=== PATIENT | female | born 1965 | race African-American/Black ===

== ENCOUNTER 2018-10-27 15:28 | Inpatient (IN) | payer SELFPAY ==
[2018-10-27] MEDS ORDERED: IPRATROPIUM/ALBUTEROL 0.5-2.5 MG/3 ML AMPUL NEB ONE (15:36)
[2018-10-27] MEDS ORDERED: METHYLPREDNISOLONE INJ 125 MG/2 ML SDV IV ONE (15:36)
[2018-10-27] MEDS ORDERED: NORMAL SALINE 1000 ML 1,000 ML IV ONE (15:38)
--- NOTE | 2018-10-27 15:41 | ER Document Report ---
ED Respiratory Problem - General Chief Complaint: Shortness Of Breath Stated Complaint: SHORTNESS OF BREATH Time Seen by Provider: 10/27/18 15:36 Mode of Arrival: Ambulatory Information source: Patient Notes: Chief complaint: Shortness of breath History of complain: 52 years old female presents today with sudden onset of shortness of breath when woke up from sleep. Since then progressively increased to therefore called EMS and came to the ED. EMS crew found her to have elevated blood pressures systole over 200, and a blood sugar of over 300. She has no known diagnosis of hypertension or diabetes. Denies any chest pain denies any left arm numbness tingling sensation nausea vomiting palpitation or diaphoresis. Denies any recent travel or sitting in place long time. No history of any DVT or PE. Onset: Just prior to arrival sudden Duration: Just prior to arrival Severity: Moderate Quality: Wheezing Context: Smoking Exacerbating factor and relieving factors: Exertion REVIEW OF SYSTEMS: CONSTITUTIONAL : Denies fever, chills, or sweats. Denies recent illness. EENT: Denies eye, ear, throat, or mouth pain or symptoms. Denies nasal or sinus congestion or discharge. Denies throat, tongue, or mouth swelling or difficulty swallowing. CARDIOVASCULAR: Denies chest pain. Denies palpitations or racing or irregular heart beat. Denies ankle edema. RESPIRATORY: Denies cough, cold, or chest congestion. GASTROINTESTINAL: Denies abdominal pain or distention. Denies nausea, vomiting, or diarrhea. Denies blood in vomitus, stools, or per rectum. Denies black, tarry stools. Denies constipation. GENITOURINARY: Denies difficulty urinating, painful urination, burning, frequency, blood in urine, or discharge. MUSCULOSKELETAL: Denies back or neck pain or stiffness. Denies joint pain or swelling. SKIN: Denies rash, lesions or sores. HEMATOLOGIC : Denies easy bruising or bleeding. LYMPHATIC: Denies swollen, enlarged glands. NEUROLOGICAL: Denies confusion or altered mental status. Denies passing out or loss of consciousness. Denies dizziness or lightheadedness. Denies headache. Denies weakness or paralysis or loss of use of either side. Denies problems with gait or speech. Denies sensory loss, numbness, or tingling. Denies seizures. PSYCHIATRIC: Denies anxiety or stress. Denies depression, suicidal ideation, or homicidal ideation. ALL OTHER SYSTEMS REVIEWED AND NEGATIVE. Dictation was performed using [employer] voice recognition software PHYSICAL EXAMINATION: GENERAL: Well-appearing, well-nourished and in moderate acute distress. HEAD: Atraumatic, normocephalic. EYES: Pupils equal round and reactive to light, extraocular movements intact, sclera anicteric, conjunctiva are normal. ENT: Nares patent, oropharynx clear without exudates. Moist mucous membranes. NECK: Normal range of motion, supple without lymphadenopathy LUNGS: Breath sounds decreased breath sounds with diffuse expiratory wheezing no rales HEART: Regular rate and rhythm without murmurs ABDOMEN: Soft, nontender, nondistended abdomen. No guarding, no rebound. No masses appreciated. Musculoskeletal: Normal range of motion, no pitting or edema. No cyanosis. NEUROLOGICAL: Cranial nerves grossly intact. Normal speech, normal gait. Normal sensory, motor exams PSYCH: Normal mood, normal affect. SKIN: Warm, Dry, normal turgor, no rashes or lesions noted. - HPI Notes: Dictated - Related Data Allergies/Adverse Reactions: No Known Allergies Allergy (Unverified 09/27/13 10:30) Past Medical History - Social History Smoking Status: Current Every Day Smoker Cigarette use (# per day): Yes - 10 Chew tobacco use (# tins/day): No Frequency of alcohol use: Rare Drug Abuse: None Lives with: Family Family History: Reviewed & Not Pertinent - Past Medical History Cardiac Medical History: Denies: Hx Heart Attack, Hx Hypertension Pulmonary Medical History: Denies: Hx Asthma Neurological Medical History: Denies: Hx Cerebrovascular Accident, Hx Seizures GI Medical History: Denies: Hx Hepatitis, Hx Hiatal Hernia, Hx Ulcer Infectious Medical History: Denies: Hx Hepatitis Past Surgical History: Denies: Hx Hysterectomy, Hx Mastectomy, Hx Open Heart Surgery, Hx Pacemaker Review of Systems - Review of Systems Notes: Dictated Physical Exam - Vital signs Vitals: Temp Resp 98.2 F 29 H 10/27/18 15:35 10/27/18 15:35 - Notes Notes: Dictated Course - Vital Signs Vital signs: Temp Pulse Resp BP Pulse Ox 98.2 F 19 211/108 H 94 10/27/18 15:35 10/27/18 17:31 10/27/18 17:31 10/27/18 17:31 - Laboratory Result Diagrams: 10/27/18 15:35 10/27/18 15:35 Laboratory results interpreted by me: 10/27/18 10/27/18 10/27/18 15:35 15:35 15:35 WBC 11.6 H RDW 14.2 H Absolute Neutrophils 8.4 H D-Dimer 2.52 H Glucose 368 H Lactic Acid AST 70 H Alkaline Phosphatase 142 H NT-Pro-B Natriuret Pep Urine Protein Urine Glucose (UA) Urine Blood Ur Leukocyte Esterase 10/27/18 10/27/18 10/27/18 15:35 15:35 16:45 WBC RDW Absolute Neutrophils D-Dimer Glucose Lactic Acid 3.1 H AST Alkaline Phosphatase NT-Pro-B Natriuret Pep 1310 H Urine Protein 100 H Urine Glucose (UA) >=500 H Urine Blood SMALL H Ur Leukocyte Esterase TRACE H - Diagnostic Test Radiology reviewed: Reports reviewed - Bilateral lower lung infiltrate, left pleural effusion as well as right pleural effusion. Possibly parapneumonic Critical Care Note - Critical Care Note Total time excluding time spent on procedures (mins): 60 Comments: Management of sepsis and pneumonia Discharge - Discharge Clinical Impression: Pleural effusion, New onset type 2 diabetes mellitus Sepsis Qualifiers: Sepsis type: sepsis due to unspecified organism Qualified Code(s): A41.9 - Sepsis, unspecified organism Pneumonia Qualifiers: Pneumonia type: due to unspecified organism Laterality: bilateral Lung location: lower lobe of lung Qualified Code(s): J18.1 - Lobar pneumonia, unspecified organism Hypertension Qualifiers: Hypertension type: essential hypertension Qualified Code(s): I10 - Essential (primary) hypertension Condition: Critical Disposition: ADMITTED INPATIENT Admitting Provider: Hospitalist Referrals: LOCAL,NO [NO LOCAL MD] - Follow up as needed
[2018-10-27] MEDS ORDERED: DILTIAZEM HCL INJ 25 MG/5 ML VIAL IV ONE (15:42)
[2018-10-27 15:54] LABS: ABSOLUTE BASOPHILS # (AUTO) 0.1 10^3/uL (0.0-0.2); ABSOLUTE EOSINOPHILS # (AUTO) 0.2 10^3/uL (0.0-0.6); ABSOLUTE LYMPHOCYTES (AUTO) 2.4 10^3/uL (0.5-4.7); ABSOLUTE MONOCYTES (AUTO) 0.4 10^3/uL (0.1-1.4); ABSOLUTE NEUT (AUTO) 8.4 10^3/uL (1.7-8.2); BASOPHILS % (AUTO) 0.8 % (0-2); HEMATOCRIT 41.9 % (36.0-47.0); HEMOGLOBIN 13.6 g/dL (12.0-15.5); LYMPHOCYTES % (AUTO) 20.9 % (13-45); MEAN CORPUSCULAR HEMOGLOBIN 27.4 pg (27.0-33.4); MEAN CORPUSCULAR HGB CONC 32.3 g/dL (32.0-36.0); MEAN CORPUSCULAR VOLUME 85 fl (80-97); MONOCYTES % (AUTO) 3.5 % (3-13); PLATELET COUNT 402 10^3/uL (150-450); RED BLOOD COUNT 4.95 10^6/uL (3.72-5.28); RED CELL DISTRIBUTION WIDTH 14.2 % (11.5-14.0); SEGMENTED NEUTROPHILS % (AUTO) 72.8 % (42-78); TOTAL CELLS COUNTED % (AUTO) 100 %; WHITE BLOOD COUNT 11.6 10^3/uL (4.0-10.5)
[2018-10-27 16:02] LABS: INTERNATIONAL RATION (INR) 1.04; PROTHROMBIN TIME 14.1 SEC (11.4-15.4)
[2018-10-27 16:03] LABS: PARTIAL THROMBOPLASTIN TIME 25.3 SEC (23.5-35.8)
[2018-10-27 16:05] LABS: D-DIMER 2.52 ug/mL (0.00-0.50)
[2018-10-27 16:23] LABS: ALANINE AMINOTRANSFERASE 51 U/L (9-52); ALBUMIN 4.3 g/dL (3.5-5.0); ALKALINE PHOSPHATASE 142 U/L (38-126); ANION GAP 10 (5-19); ASPARTATE AMINO TRANSFERASE 70 U/L (14-36); BILIRUBIN,DIRECT 0.3 mg/dL (0.0-0.4); BILIRUBIN,TOTAL 0.5 mg/dL (0.2-1.3); BLOOD UREA NITROGEN 10 mg/dL (7-20); CALCIUM 9.3 mg/dL (8.4-10.2); CARBON DIOXIDE 26 mmol/L (22-30); CHLORIDE 102 mmol/L (98-107); GLUCOSE 368 mg/dL (75-110); POTASSIUM 3.8 mmol/L (3.6-5.0); SODIUM 137.6 mmol/L (137-145); TOTAL PROTEIN 7.9 g/dL (6.3-8.2)
--- NOTE | 2018-10-27 16:24 | RADIOLOGY REPORT (SQ) ---
EXAM DESCRIPTION: CHEST SINGLE VIEW COMPLETED DATE/TIME: 10/27/2018 4:14 pm REASON FOR STUDY: Shortness of breath COMPARISON: None. EXAM PARAMETERS: NUMBER OF VIEWS: One view. TECHNIQUE: Single frontal radiographic view of the chest acquired. RADIATION DOSE: NA LIMITATIONS: None. FINDINGS: LUNGS AND PLEURA: Left lower lobe opacity with blunting of the left costophrenic angle. R ight basilar opacity. Right costophrenic angle is sharp. No pneumothorax. MEDIASTINUM AND HILAR STRUCTURES: No masses. Contour normal. HEART AND VASCULAR STRUCTURES: Cardiac silhouette is obscured by the adjacent lung pathology. Normal vasculature. BONES: No acute findings. HARDWARE: None in the chest. OTHER: No other significant finding. IMPRESSION: 1. Bibasilar opacities, suggestive of pneumonia in the appropriate clinical setting. 2. Small left pleural effusion. TECHNICAL DOCUMENTATION: JOB ID: [id number] [employer]- All Rights Reserved Reading location - IP/workstation name: [email or web address]
[2018-10-27 16:35] LABS: CREATINE KINASE MB 0.63 ng/mL (<4.55); NT PRO BNP 1310 pg/mL (5-900); TROPONIN I < 0.012 ng/mL
[2018-10-27] MEDS ORDERED: INSULIN REG, HUMAN 100 UNIT/ML 3 ML VIAL (PYX) SUBCUT ONE (16:37)
[2018-10-27] MEDS ORDERED: PIPERACILLIN/TAZOBACTAM 4.5 GM VIAL IV ONE (16:37)
[2018-10-27 17:01] LABS: VENOUS BLOOD BASE EXCESS 0.1 mmol/L; VENOUS BLOOD HCO3 24.7 mmol/L (20-32); VENOUS BLOOD PH 7.41 (7.30-7.42)
[2018-10-27] MEDS: NORMAL SALINE 1000 ML 1,000 ML IV PRN (17:14)
--- NOTE | 2018-10-27 17:24 | RADIOLOGY REPORT (SQ) ---
EXAM DESCRIPTION: CTA CHEST COMPLETED DATE/TIME: 10/27/2018 4:59 pm REASON FOR STUDY: Acute shortness of breath, rule out PE COMPARISON: Same day chest radiograph TECHNIQUE: CT scan of the chest performed using helical scanning technique with dynamic intravenous contrast injection. Images reviewed with lung, soft tissue and bone windows. Reconstructed coronal and sagittal MPR images reviewed. Additional 3 dimensional post-processing performed to develop Maximal Intensity Projection images (NE P). All images stored on PACS. All CT scanners at this facility use dose modulation, iterative reconstruction, and/or weight based d osing when appropriate to reduce radiation dose to as low as reasonably achievable (ALARA). [facility]: Dose Right [facility]: CareDose [facility]: Dose Right [facility]: Teradose 4D [facility]: SimGym CONTRAST TYPE AND DOSE: contrast/concentration: Isovue 350.00 mg/ml; Total Contrast Delivered: 73.0 ml; Total Saline Delivered: 80.0 ml 73 mL IV of Omnipaque 350- low osmolar. Contrast bolus optimized for the pulmonary arteries. Not diagnostic for the aorta. RENAL FUNCTION: BUN 10 creatinine 0.67 RADIATION DOSE: CT Rad equipment meets quality standard of care and radiation dose reduction techniq ues were employed. CTDIvol: 15.0 - 16.5 mGy. DLP: 572 mGy-cm. . LIMITATIONS: None. FINDINGS: LUNGS AND PLEURA: Moderate left and small right pleural effusions. Left lower lobe and le ft lingula consolidations, likely representing atelectasis. Scattered ground-glass opacities bilater ally. Small scattered cystic changes of both upper lobes and the left lower lobe. Incidental note o f a right azygos fissure. No pneumothorax. AORTA AND GREAT VESSELS: No aneurysm. Contrast bolus not optimized for the aorta. HEART: No pericardial effusion. No significant coronary artery calcifications. PULMONARY ARTERIES: No emboli visualized in the main pulmonary arteries or the segmental branches. HILAR AND MEDIASTINAL STRUCTURES: No identified masses or abnormal nodes. HARDWARE: None in the chest. UPPER ABDOMEN: No significant findings. Limited exam. THYROID AND OTHER SOFT TISSUES: No masses. No adenopathy. BONES: No acute or significant finding. 3D MIPS: Confirm above findings. OTHER: No other significant finding. IMPRESSION: 1. No pulmonary embolus. 2. Scattered ground-glass opacities bilaterally. Differential considerations include pneumonia, pulm onary hemorrhage and pulmonary edema. 3. Moderate left and small right pleural effusions. COMMENT: Quality ID # [id number]: Final reports with documentation of one or more dose reduction techniques (e.g., Automated exposure control, adjustment of the mA and/or kV according to patient size, use of iterative reconstruction technique) TECHNICAL DOCUMENTATION: JOB ID: [id number] [employer]- All Rights Reserved Reading location - IP/workstation name: [email or web address]
[2018-10-27 17:31] LABS: APPEARANCE,URINE CLEAR; BILIRUBIN,URINE NEGATIVE (NEGATIVE); COLOR,URINE YELLOW; GLUCOSE, URINE >=500 mg/dL (NEGATIVE); KETONES,URINE NEGATIVE (NEGATIVE); LEUKOCYTE ESTERASE,URINE TRACE (NEGATIVE); NITRITE,URINE NEGATIVE (NEGATIVE); PROTEIN,URINE 100 mg/dL (NEGATIVE); URINE SPECIFIC GRAVITY 1.008; UROBILINOGEN,URINE NEGATIVE mg/dL (<2.0)
[2018-10-27] MEDS ORDERED: LEVALBUTEROL HCL NEB 1.25 MG/3 ML AMPUL NEB PRN (18:17)
[2018-10-27] MEDS ORDERED: ACETAMINOPHEN 325 MG TABLET PO PRN (18:17)
[2018-10-27] MEDS ORDERED: DEXTROSE 40% GEL 15 GM TUBE PO PRN ×2 (18:30)
[2018-10-27] MEDS ORDERED: DEXTROSE 50%-WATER 25 GM/50 ML DISP.SYRIN IV PRN ×2 (18:30)
[2018-10-27] MEDS ORDERED: METOPROLOL TARTRATE PF/INJ 5 MG/5 ML SDV IV ONE (18:30)
[2018-10-27] MEDS ORDERED: GLUCAGON,HUMAN RECOMB 1 MG INJ IM PRN (18:30)
[2018-10-27] MEDS ORDERED: AZITHROMYCIN INJ 500 MG VIAL IV PRN (18:31)
[2018-10-27] MEDS ORDERED: METOPROLOL TARTRATE PF/INJ 5 MG/5 ML SDV IV PRN (18:33)
[2018-10-27] MEDS ORDERED: CEFTRIAXONE 1 GM/D5W RTU 1 GM/50 ML RTUPB IV ONE (19:00)
--- NOTE | 2018-10-27 19:03 | PDOC H&P ---
History of Present Illness Admission Date/PCP: 10/27/18 17:57 Patient complains of: Acute onset shortness of breath History of Present Illness: MARÍA HERNANDEZ is a 52 year old female who reports that she was feeling fine several days ago. Today she had acute onset shortness of breath. She denies any chest pain or pressure. She denies palpitations despite her tachycardia. She denies fever or chills. She states that several of her nieces and nephews have been sick. She had a positive d-dimer with negative CTA. CT scan showed multiple groundglass infiltrates. The patient is tachycardic and hypertensive. She had decreased oxygen saturation on room air with minimal exertion. She denies any wheezing. She denies productive cough. There is a strong family history of diabetes and her serum glucose was greater than 300. The patient is referred to the hospitalist service for admission. Past Medical History Cardiac Medical History: Denies: Myocardial Infarction, Hypertension Pulmonary Medical History: Denies: Asthma EENT Medical History: Reports: Cataracts Neurological Medical History: Denies: Seizures Endocrine Medical History: Reports: None Renal/ Medical History: Reports: None Malignancy Medical History: Reports: None GI Medical History: Denies: Hepatitis, Hiatal Hernia Musculoskeltal Medical History: Reports: None Skin Medical History: Reports: None Psychiatric Medical History: Reports: Tobacco Dependency Traumatic Medical History: Reports: None Hematology: Denies: Anemia, Sickle Cell Disease Infectious Medical History: Reports: None Past Surgical History Past Surgical History: Reports: Other - Cataracts Denies: Amputation, Hysterectomy, Mastectomy, Pacemaker Social History Lives with: Family Smoking Status: Current Every Day Smoker Cigarettes Packs Per Day: 0.5 Frequency of Alcohol Use: Rare Last Alcohol Use: 10/16/18 Hx Recreational Drug Use: No Drugs: None Hx Prescription Drug Abuse: No - Advance Directive Resuscitation Status: Full Code Surrogate healthcare decision maker:: No healthcare proxy documentation. Her children of the designated decision makers. Family History Family History: DM, Hypertension, Other - Asthma Parental Family History Reviewed: Yes Children Family History Reviewed: Yes Sibling(s) Family History Reviewed.: Yes Medication/Allergy Home Medications: No Home Medications 09/27/13 Allergies/Adverse Reactions: No Known Allergies Allergy (Unverified 09/27/13 10:30) Review of Systems Constitutional: PRESENT: as per HPI Eyes: ABSENT: visual disturbances Ears: ABSENT: hearing changes Nose, Mouth, and Throat: ABSENT: mouth pain, sore throat Cardiovascular: PRESENT: dyspnea on exertion. ABSENT: chest pain, edema, palpitations Respiratory: PRESENT: dyspnea. ABSENT: hemoptysis, sputum Gastrointestinal: ABSENT: abdominal pain, constipation, diarrhea, nausea, vomiting Genitourinary: ABSENT: difficulty urinating, dysuria Musculoskeletal: ABSENT: back pain, deformity, joint swelling Integumentary: ABSENT: lesions, rash Neurological: ABSENT: abnormal movements, abnormal speech, focal weakness, tremor(s), vertigo Psychiatric: ABSENT: anxiety, depression Endocrine: ABSENT: cold intolerance, heat intolerance Hematologic/Lymphatic: ABSENT: easy bleeding, easy bruising, lymphadenopathy Allergic/Immunologic: ABSENT: seasonal rhinorrhea Physical Exam Vital Signs: Temp Pulse Resp BP Pulse Ox 98.2 F 29 H 182/99 H 97 10/27/18 15:35 10/27/18 18:21 10/27/18 18:21 10/27/18 18:21 Intake & Output 10/26/18 10/27/18 10/28/18 06:59 06:59 06:59 Intake Total 1000 Balance 1000 General appearance: PRESENT: cooperative, mild distress, well-developed Head exam: PRESENT: normocephalic Eye exam: PRESENT: conjunctiva pink, EOMI. ABSENT: scleral icterus Ear exam: PRESENT: normal external ear exam Mouth exam: PRESENT: moist, tongue midline Neck exam: PRESENT: full ROM. ABSENT: carotid bruit, JVD, lymphadenopathy Respiratory exam: PRESENT: rales - Sporadic rales bilaterally, symmetrical. ABSENT: prolonged expiratory phas, rhonchi, stridor, wheezes Cardiovascular exam: PRESENT: rubs, +S2, tachycardia Vascular exam: ABSENT: pallor GI/Abdominal exam: PRESENT: normal bowel sounds, soft. ABSENT: distended, tenderness Rectal exam: PRESENT: deferred Extremities exam: ABSENT: calf tenderness, joint swelling, pedal edema Musculoskeletal exam: PRESENT: normal inspection Neurological exam: PRESENT: alert, awake, oriented to person, oriented to place, oriented to time, oriented to situation, CN II-XII grossly intact Psychiatric exam: PRESENT: appropriate affect. ABSENT: agitated, anxious Focused psych exam: ABSENT: restlessness Skin exam: PRESENT: dry, warm. ABSENT: rash Results Laboratory Results: 10/27/18 15:35 10/27/18 15:35 10/27/18 10/27/18 10/27/18 15:35 15:35 15:35 WBC 11.6 H RBC 4.95 Hgb 13.6 Hct 41.9 MCV 85 MCH 27.4 MCHC 32.3 RDW 14.2 H Plt Count 402 Seg Neutrophils % 72.8 Lymphocytes % 20.9 Monocytes % 3.5 Eosinophils % 2.0 Basophils % 0.8 Absolute Neutrophils 8.4 H Absolute Lymphocytes 2.4 Absolute Monocytes 0.4 Absolute Eosinophils 0.2 Absolute Basophils 0.1 VBG pH VBG pCO2 VBG HCO3 VBG Base Excess Sodium 137.6 Potassium 3.8 Chloride 102 Carbon Dioxide 26 Anion Gap 10 BUN 10 Creatinine 0.67 Est GFR ( Amer) > 60 Est GFR (Non-Af Amer) > 60 Glucose 368 H Lactic Acid 3.1 H Calcium 9.3 Total Bilirubin 0.5 AST 70 H ALT 51 Alkaline Phosphatase 142 H Total Protein 7.9 Albumin 4.3 Urine Color Urine Appearance Urine pH Ur Specific [place] Urine Protein Urine Glucose (UA) Urine Ketones Urine Blood Urine Nitrite Ur Leukocyte Esterase Urine WBC (Auto) Urine RBC (Auto) 10/27/18 10/27/18 15:35 16:45 WBC RBC Hgb Hct MCV MCH MCHC RDW Plt Count Seg Neutrophils % Lymphocytes % Monocytes % Eosinophils % Basophils % Absolute Neutrophils Absolute Lymphocytes Absolute Monocytes Absolute Eosinophils Absolute Basophils VBG pH 7.41 VBG pCO2 40.0 VBG HCO3 24.7 VBG Base Excess 0.1 Sodium Potassium Chloride Carbon Dioxide Anion Gap BUN Creatinine Est GFR ( Amer) Est GFR (Non-Af Amer) Glucose Lactic Acid Calcium Total Bilirubin AST ALT Alkaline Phosphatase Total Protein Albumin Urine Color YELLOW Urine Appearance CLEAR Urine pH 7.0 Ur Specific [place] 1.008 Urine Protein 100 H Urine Glucose (UA) >=500 H Urine Ketones NEGATIVE Urine Blood SMALL H Urine Nitrite NEGATIVE Ur Leukocyte Esterase TRACE H Urine WBC (Auto) 4 Urine RBC (Auto) 3 10/27/18 15:35 CK-MB (CK-2) 0.63 Troponin I < 0.012 NT-Pro-B Natriuret Pep 1310 H Impressions: Chest X-Ray 10/27/18 15:37 IMPRESSION: 1. Bibasilar opacities, suggestive of pneumonia in the appropriate clinical setting. 2. Small left pleural effusion. Chest/Abdomen CTA 10/27/18 16:20 IMPRESSION: 1. No pulmonary embolus. 2. Scattered ground-glass opacities bilaterally. Differential considerations include pneumonia, pulmonary hemorrhage and pulmonary edema. 3. Moderate left and small right pleural effusions. Assessment & Plan - Diagnosis (1) Pneumonia Qualifiers: Pneumonia type: due to unspecified organism Laterality: bilateral Lung location: lower lobe of lung Qualified Code(s): J18.1 - Lobar pneumonia, unspecified organism Is this a current diagnosis for this admission?: Yes Plan: CT scan reveals bilateral groundglass infiltrates. No focal consolidation. There is a pleural effusion. CT angiogram was negative for pulmonary embolus despite elevated d-dimer. I will start the patient on ceftriaxone and azithromycin for possible community acquired pneumonia. Several nieces and nephews have been sick and so a viral pneumonitis is a possibility. I will administer steroids and as needed nebulizer treatments. (2) Hypertension Qualifiers: Hypertension type: essential hypertension Qualified Code(s): I10 - Essential (primary) hypertension Is this a current diagnosis for this admission?: Yes Plan: Strong family history of hypertension. The patient likely has had untreated hypertension. Her elevated blood pressures and tachycardia will initially be treated with metoprolol. I will also add an SANDRA inhibitor with her underlying diabetes. (3) New onset type 2 diabetes mellitus Is this a current diagnosis for this admission?: Yes Plan: Strong family history of diabetes. Just like her blood pressure she likely has had diabetes for some time. I will start a sliding scale initially. I will add oral antidiabetic's for outpatient use. An SANDRA inhibitor will be started as noted above. She would also benefit from a statin and aspirin daily. (4) Pleural effusion Is this a current diagnosis for this admission?: Yes Plan: Starting tomorrow I will add low-dose furosemide. We will monitor her intake and output. We will monitor her electrolytes as well. - Time Time Spent: 50 to 70 Minutes Smoking Cessation Education: 3 to 10 minutes Medications reviewed and adjusted accordingly: Yes Anticipated discharge: Home
[2018-10-27] MEDS ORDERED: HYDRALAZINE HCL INJ/PF 20 MG/1 ML SDV IV PRN (19:49)
[2018-10-27] MEDS ORDERED: BUMETANIDE INJ/PF 1 MG/4 ML SDV IV ONE (20:30)
--- NOTE | 2018-10-27 21:53 | EKG REPORT ---
SEVERITY:- ABNORMAL ECG - SINUS TACHYCARDIA LEFT ATRIAL ABNORMALITY PROBABLE LEFT VENTRICULAR HYPERTROPHY ANTERIOR Q WAVES, POSSIBLY DUE TO LVH : Confirmed by: Mack Ferrell MD 27-Oct-2018 21:52:42
[2018-10-27] MEDS: FAMOTIDINE 20 MG TABLET PO SCH (21:58)
[2018-10-27] MEDS: GUAIFENESIN 600 MG TABLET.SA PO SCH (21:58)
[2018-10-27] MEDS ORDERED: LISINOPRIL 10 MG TABLET PO ONE (23:20)
[2018-10-27] MEDS ORDERED: METOPROLOL SUCCINATE 50 MG TAB.SR.24H PO ONE (23:20)
[2018-10-27] MEDS: INSULIN REG, HUMAN 100 UNIT/ML 3 ML VIAL (PYX) SUBCUT PRN (23:32)
[2018-10-28] MEDS ORDERED: METOPROLOL TARTRATE 25 MG TABLET PO SCH
[2018-10-28] MEDS: NORMAL SALINE 1000 ML 1,000 ML IV PRN (03:01)
[2018-10-28 05:11] LABS: ABSOLUTE MONOCYTES (AUTO) 0.4 10^3/uL (0.1-1.4); ABSOLUTE NEUT (AUTO) 11.5 10^3/uL (1.7-8.2); BASOPHILS % (AUTO) 0.3 % (0-2); EOSINOPHILS % (AUTO) 0.1 % (0-6); HEMATOCRIT 36.8 % (36.0-47.0); HEMOGLOBIN 12.1 g/dL (12.0-15.5); LYMPHOCYTES % (AUTO) 7.7 % (13-45); MEAN CORPUSCULAR HEMOGLOBIN 27.4 pg (27.0-33.4); MEAN CORPUSCULAR HGB CONC 32.7 g/dL (32.0-36.0); MEAN CORPUSCULAR VOLUME 84 fl (80-97); MONOCYTES % (AUTO) 2.8 % (3-13); PLATELET COUNT 349 10^3/uL (150-450); RED BLOOD COUNT 4.39 10^6/uL (3.72-5.28); SEGMENTED NEUTROPHILS % (AUTO) 89.1 % (42-78); TOTAL CELLS COUNTED % (AUTO) 100 %; WHITE BLOOD COUNT 12.9 10^3/uL (4.0-10.5)
[2018-10-28 05:33] LABS: ANION GAP 9 (5-19); BLOOD UREA NITROGEN 12 mg/dL (7-20); CALCIUM 9.3 mg/dL (8.4-10.2); CARBON DIOXIDE 24 mmol/L (22-30); CHLORIDE 105 mmol/L (98-107); GLUCOSE 295 mg/dL (75-110); POTASSIUM 4.4 mmol/L (3.6-5.0); SODIUM 138.3 mmol/L (137-145)
[2018-10-28 05:56] LABS: ERYTHROCYTE SEDIMENTATION RATE 53 mm/hr (0-30)
[2018-10-28] MEDS ORDERED: LANSOPRAZOLE 15 MG TAB.RAP.DR PO SCH (06:00)
[2018-10-28] MEDS: METHYLPREDNISOLONE INJ 40 MG/1 ML SDV IV SCH ×2 (06:02→18:51)
[2018-10-28] MEDS: INSULIN REG, HUMAN 100 UNIT/ML 3 ML VIAL (PYX) SUBCUT PRN ×4 (06:45→21:22)
--- NOTE | 2018-10-28 07:40 | RADIOLOGY REPORT (SQ) ---
CLINICAL HISTORY: Pneumonia COMPARISON: October 27, 2018. TECHNIQUE: XR CHEST 1 VIEW 10/28/2018 6:00 AM [employer] FINDINGS: Cardiac silhouette is normal in size. There is a large left basilar consolidation. There is right basilar airspace disease. There is a moderate left pleural effusion. There is no pneumothorax. There are no acute osseous findings. IMPRESSION: No change.
[2018-10-28] MEDS: LABETALOL HCL INJ 20 MG/4 ML DISP.SYRIN IV PRN (07:51)
[2018-10-28] MEDS ORDERED: METFORMIN HCL 500 MG TABLET PO SCH (08:00)
[2018-10-28] MEDS: LISINOPRIL 10 MG TABLET PO SCH (09:39)
[2018-10-28] MEDS: GUAIFENESIN 600 MG TABLET.SA PO SCH ×2 (09:39→21:23)
[2018-10-28] MEDS: FAMOTIDINE 20 MG TABLET PO SCH ×2 (09:39→21:24)
[2018-10-28] MEDS: ENOXAPARIN SODIUM INJ 40 MG/0.4 ML DISP.SYRIN SUBCUT SCH (09:40)
[2018-10-28] MEDS ORDERED: METOPROLOL SUCCINATE 50 MG TAB.SR.24H PO SCH (10:00)
[2018-10-28] MEDS ORDERED: LISINOPRIL 10 MG TABLET PO SCH ×2 (10:00)
[2018-10-28] MEDS ORDERED: FUROSEMIDE 20 MG TABLET PO ONE (14:03)
--- NOTE | 2018-10-28 14:09 | PDOC PROGRESS REPORT ---
Subjective Progress Note for:: 10/28/18 Subjective:: Patient reports feeling better. She still desaturates when she walks without oxygen. She walked to the bathroom and was noticeably short of breath. Reason For Visit: PNEUMONIA Physical Exam Vital Signs: Temp Pulse Resp BP Pulse Ox 98.0 F 102 H 18 151/83 H 94 10/28/18 12:00 10/28/18 12:00 10/28/18 12:00 10/28/18 12:00 10/28/18 12:00 Intake & Output 10/27/18 10/28/18 10/29/18 06:59 06:59 06:59 Intake Total 2049 1050 Balance 2049 105 Weight 85.5 kg General appearance: PRESENT: no acute distress, well-developed Head exam: PRESENT: normocephalic Respiratory exam: PRESENT: crackles, decreased breath sounds - At bases, symmetrical, unlabored. ABSENT: prolonged expiratory phas, rhonchi, wheezes Cardiovascular exam: PRESENT: +S1, +S2, tachycardia GI/Abdominal exam: PRESENT: normal bowel sounds, soft. ABSENT: distended, tenderness Extremities exam: ABSENT: pedal edema Musculoskeletal exam: PRESENT: normal inspection Neurological exam: PRESENT: alert, awake, oriented to person, oriented to place, oriented to time, oriented to situation, CN II-XII grossly intact Psychiatric exam: PRESENT: appropriate affect, normal mood. ABSENT: agitated, anxious Focused psych exam: ABSENT: restlessness Results Laboratory Results: 10/28/18 04:50 10/28/18 04:50 10/27/18 10/27/18 10/27/18 15:35 15:35 15:35 WBC 11.6 H RBC 4.95 Hgb 13.6 Hct 41.9 MCV 85 MCH 27.4 MCHC 32.3 RDW 14.2 H Plt Count 402 Seg Neutrophils % 72.8 Lymphocytes % 20.9 Monocytes % 3.5 Eosinophils % 2.0 Basophils % 0.8 Absolute Neutrophils 8.4 H Absolute Lymphocytes 2.4 Absolute Monocytes 0.4 Absolute Eosinophils 0.2 Absolute Basophils 0.1 VBG pH VBG pCO2 VBG HCO3 VBG Base Excess Sodium 137.6 Potassium 3.8 Chloride 102 Carbon Dioxide 26 Anion Gap 10 BUN 10 Creatinine 0.67 Est GFR ( Amer) > 60 Est GFR (Non-Af Amer) > 60 Glucose 368 H Lactic Acid 3.1 H Calcium 9.3 Magnesium Total Bilirubin 0.5 AST 70 H ALT 51 Alkaline Phosphatase 142 H Total Protein 7.9 Albumin 4.3 TSH Urine Color Urine Appearance Urine pH Ur Specific [place] Urine Protein Urine Glucose (UA) Urine Ketones Urine Blood Urine Nitrite Ur Leukocyte Esterase Urine WBC (Auto) Urine RBC (Auto) 10/27/18 10/27/18 10/27/18 15:35 16:45 20:00 WBC RBC Hgb Hct MCV MCH MCHC RDW Plt Count Seg Neutrophils % Lymphocytes % Monocytes % Eosinophils % Basophils % Absolute Neutrophils Absolute Lymphocytes Absolute Monocytes Absolute Eosinophils Absolute Basophils VBG pH 7.41 VBG pCO2 40.0 VBG HCO3 24.7 VBG Base Excess 0.1 Sodium Potassium Chloride Carbon Dioxide Anion Gap BUN Creatinine Est GFR ( Amer) Est GFR (Non-Af Amer) Glucose Lactic Acid 2.1 Calcium Magnesium Total Bilirubin AST ALT Alkaline Phosphatase Total Protein Albumin TSH Urine Color YELLOW Urine Appearance CLEAR Urine pH 7.0 Ur Specific [place] 1.008 Urine Protein 100 H Urine Glucose (UA) >=500 H Urine Ketones NEGATIVE Urine Blood SMALL H Urine Nitrite NEGATIVE Ur Leukocyte Esterase TRACE H Urine WBC (Auto) 4 Urine RBC (Auto) 3 10/28/18 10/28/18 10/28/18 04:50 04:50 04:50 WBC RBC Hgb Hct MCV MCH MCHC RDW Plt Count Seg Neutrophils % Lymphocytes % Monocytes % Eosinophils % Basophils % Absolute Neutrophils Absolute Lymphocytes Absolute Monocytes Absolute Eosinophils Absolute Basophils VBG pH VBG pCO2 VBG HCO3 VBG Base Excess Sodium 138.3 Potassium 4.4 Chloride 105 Carbon Dioxide 24 Anion Gap 9 BUN 12 Creatinine 0.46 L Est GFR ( Amer) > 60 Est GFR (Non-Af Amer) > 60 Glucose 295 H Lactic Acid 1.3 Calcium 9.3 Magnesium 1.7 Total Bilirubin AST ALT Alkaline Phosphatase Total Protein Albumin TSH 0.19 L Urine Color Urine Appearance Urine pH Ur Specific [place] Urine Protein Urine Glucose (UA) Urine Ketones Urine Blood Urine Nitrite Ur Leukocyte Esterase Urine WBC (Auto) Urine RBC (Auto) 10/28/18 04:50 WBC 12.9 H RBC 4.39 Hgb 12.1 Hct 36.8 MCV 84 MCH 27.4 MCHC 32.7 RDW 14.0 Plt Count 349 Seg Neutrophils % 89.1 H Lymphocytes % 7.7 L Monocytes % 2.8 L Eosinophils % 0.1 Basophils % 0.3 Absolute Neutrophils 11.5 H Absolute Lymphocytes 1.0 Absolute Monocytes 0.4 Absolute Eosinophils 0.0 Absolute Basophils 0.0 VBG pH VBG pCO2 VBG HCO3 VBG Base Excess Sodium Potassium Chloride Carbon Dioxide Anion Gap BUN Creatinine Est GFR ( Amer) Est GFR (Non-Af Amer) Glucose Lactic Acid Calcium Magnesium Total Bilirubin AST ALT Alkaline Phosphatase Total Protein Albumin TSH Urine Color Urine Appearance Urine pH Ur Specific [place] Urine Protein Urine Glucose (UA) Urine Ketones Urine Blood Urine Nitrite Ur Leukocyte Esterase Urine WBC (Auto) Urine RBC (Auto) 10/27/18 15:35 CK-MB (CK-2) 0.63 Troponin I < 0.012 NT-Pro-B Natriuret Pep 1310 H Impressions: Chest/Abdomen CTA 10/27/18 16:20 IMPRESSION: 1. No pulmonary embolus. 2. Scattered ground-glass opacities bilaterally. Differential considerations include pneumonia, pulmonary hemorrhage and pulmonary edema. 3. Moderate left and small right pleural effusions. Chest X-Ray 10/28/18 06:00 IMPRESSION: No change. Assessment & Plan - Diagnosis (1) Pneumonia Qualifiers: Pneumonia type: due to unspecified organism Laterality: bilateral Lung location: lower lobe of lung Qualified Code(s): J18.1 - Lobar pneumonia, unspecified organism Is this a current diagnosis for this admission?: Yes Plan: Consolidations on x-ray. Continue Rocephin and azithromycin for community- acquired pneumonia. Bilateral effusions possibly parapneumonic. (2) Hypertension Qualifiers: Hypertension type: essential hypertension Qualified Code(s): I10 - Essential (primary) hypertension Is this a current diagnosis for this admission?: Yes Plan: Still with elevated blood pressures but improved. Continue current regimen. (3) New onset type 2 diabetes mellitus Is this a current diagnosis for this admission?: Yes Plan: Still with glucoses above 200. I have increased the metformin to 1 g twice daily. Continue sliding scale. (4) Pleural effusion Is this a current diagnosis for this admission?: Yes Plan: Difficult to know if these are parapneumonic or cardiogenic. I have ordered an echocardiogram. Continue aggressive diuresis. - Time Time Spent with patient: 15-24 minutes Medications reviewed and adjusted accordingly: Yes Anticipated discharge: Home
[2018-10-28] MEDS: METFORMIN HCL 500 MG TABLET PO SCH (16:16)
[2018-10-28] MEDS ORDERED: CEFTRIAXONE 1 GM/D5W RTU 1 GM/50 ML RTUPB IV ONE (19:07)
[2018-10-28] MEDS: CEFTRIAXONE 1 GM/D5W RTU 1 GM/50 ML RTUPB IV SCH (19:19)
[2018-10-28] MEDS: AZITHROMYCIN 500 MG in DEXTROSE 5%-WATER 250 ML IV SCH (21:22)
[2018-10-28] MEDS: METOPROLOL SUCCINATE 50 MG TAB.SR.24H PO SCH (21:23)
[2018-10-29] MEDS: METHYLPREDNISOLONE INJ 40 MG/1 ML SDV IV SCH ×2 (05:20→18:00)
[2018-10-29 07:03] LABS: HEMATOCRIT 37.2 % (36.0-47.0); HEMOGLOBIN 12.1 g/dL (12.0-15.5); MEAN CORPUSCULAR HEMOGLOBIN 27.4 pg (27.0-33.4); MEAN CORPUSCULAR HGB CONC 32.7 g/dL (32.0-36.0); MEAN CORPUSCULAR VOLUME 84 fl (80-97); PLATELET COUNT 358 10^3/uL (150-450); RED BLOOD COUNT 4.43 10^6/uL (3.72-5.28); RED CELL DISTRIBUTION WIDTH 14.2 % (11.5-14.0); WHITE BLOOD COUNT 17.9 10^3/uL (4.0-10.5)
[2018-10-29 07:41] LABS: ANION GAP 10 (5-19); BLOOD UREA NITROGEN 23 mg/dL (7-20); CALCIUM 9.4 mg/dL (8.4-10.2); CARBON DIOXIDE 23 mmol/L (22-30); CHLORIDE 102 mmol/L (98-107); GLUCOSE 303 mg/dL (75-110); POTASSIUM 5.7 mmol/L (3.6-5.0); SODIUM 134.8 mmol/L (137-145)
[2018-10-29] MEDS: METFORMIN HCL 500 MG TABLET PO SCH ×2 (08:02→18:00)
[2018-10-29] MEDS: LABETALOL HCL INJ 20 MG/4 ML DISP.SYRIN IV PRN ×2 (08:02→21:53)
[2018-10-29] MEDS: INSULIN REG, HUMAN 100 UNIT/ML 3 ML VIAL (PYX) SUBCUT PRN ×4 (08:09→22:46)
[2018-10-29] MEDS: ENOXAPARIN SODIUM INJ 40 MG/0.4 ML DISP.SYRIN SUBCUT SCH (10:15)
[2018-10-29] MEDS: GUAIFENESIN 600 MG TABLET.SA PO SCH ×2 (10:16→21:54)
[2018-10-29] MEDS: FUROSEMIDE 40 MG TABLET PO SCH (10:16)
[2018-10-29] MEDS: FAMOTIDINE 20 MG TABLET PO SCH ×2 (10:16→21:54)
[2018-10-29] MEDS: LISINOPRIL 10 MG TABLET PO SCH (10:16)
[2018-10-29] MEDS: CEFTRIAXONE 1 GM/D5W RTU 1 GM/50 ML RTUPB IV SCH (17:59)
[2018-10-29] MEDS ORDERED: CLONIDINE HCL 0.1 MG TABLET PO PRN (18:53)
--- NOTE | 2018-10-29 19:00 | PDOC PROGRESS REPORT ---
Subjective Progress Note for:: 10/29/18 Subjective:: Patient admitted with multiple issues. Currently she states that she feels better. Her blood pressure is still poorly controlled Reason For Visit: PNEUMONIA Physical Exam Vital Signs: Temp Pulse Resp BP Pulse Ox 98.4 F 98 18 155/92 H 98 10/29/18 16:00 10/29/18 16:00 10/29/18 16:00 10/29/18 16:00 10/29/18 16:00 Intake & Output 10/28/18 10/29/18 10/30/18 06:59 06:59 06:59 Intake Total 2049 1466 906 Balance 2049 1466 906 Weight 88 kg General appearance: PRESENT: no acute distress, well-developed, well-nourished Head exam: PRESENT: atraumatic, normocephalic Eye exam: PRESENT: conjunctiva pink, EOMI, PERRLA. ABSENT: scleral icterus Ear exam: PRESENT: normal external ear exam Mouth exam: PRESENT: moist, tongue midline Neck exam: ABSENT: carotid bruit, JVD, lymphadenopathy, thyromegaly Respiratory exam: PRESENT: unlabored, other - bibasal crackles. ABSENT: rales, rhonchi, wheezes Cardiovascular exam: PRESENT: RRR. ABSENT: diastolic murmur, rubs, systolic murmur Pulses: PRESENT: normal dorsalis pedis pul Vascular exam: PRESENT: normal capillary refill GI/Abdominal exam: PRESENT: normal bowel sounds, soft. ABSENT: distended, guarding, mass, organolmegaly, rebound, tenderness Rectal exam: PRESENT: deferred Extremities exam: PRESENT: full ROM. ABSENT: calf tenderness, clubbing, pedal edema Neurological exam: PRESENT: alert, awake, oriented to person, oriented to place, oriented to time, oriented to situation, CN II-XII grossly intact. ABSENT: motor sensory deficit Psychiatric exam: PRESENT: appropriate affect, normal mood. ABSENT: homicidal ideation, suicidal ideation Skin exam: PRESENT: dry, intact, warm. ABSENT: cyanosis, rash Results Laboratory Results: 10/29/18 06:04 10/29/18 06:04 10/29/18 10/29/18 06:04 06:04 WBC 17.9 H RBC 4.43 Hgb 12.1 Hct 37.2 MCV 84 MCH 27.4 MCHC 32.7 RDW 14.2 H Plt Count 358 Sodium 134.8 L Potassium 5.7 H Chloride 102 Carbon Dioxide 23 Anion Gap 10 BUN 23 H Creatinine 0.76 Est GFR ( Amer) > 60 Est GFR (Non-Af Amer) > 60 Glucose 303 H Calcium 9.4 Magnesium 1.8 10/27/18 15:35 CK-MB (CK-2) 0.63 Troponin I < 0.012 NT-Pro-B Natriuret Pep 1310 H Impressions: Chest/Abdomen CTA 10/27/18 16:20 IMPRESSION: 1. No pulmonary embolus. 2. Scattered ground-glass opacities bilaterally. Differential considerations include pneumonia, pulmonary hemorrhage and pulmonary edema. 3. Moderate left and small right pleural effusions. Chest X-Ray 10/28/18 06:00 IMPRESSION: No change. Assessment & Plan - Plan Summary Plan Summary: 1. Community-acquired pneumonia, bilateral lower lobe. Patient apparently is clinically better. Leukocytosis likely steroid-induced 2. hypertension, essential. We will continue to adjust medications. 3. Type 2 diabetes mellitus, new onset. We will continue to adjust Metformin. She may need insulin although will be nice if we can hold simplify things for this lady and use only oral if her blood sugar can tolerate it #4 pleural effusion possibly parapneumonic. We will continue to follow #5 hyperkalemia etiology not clear to me. We will review her medications and adjust as needed We will DC lisinopril for now and also decrease steroid dose as this may be a contributing factor
[2018-10-29] MEDS: AMLODIPINE BESYLATE 5 MG TABLET PO SCH (19:05)
--- NOTE | 2018-10-29 19:31 | XCELERA REPORT ---
[address] [address] Transthoracic Echocardiogram Report Name: MARÍA HERNANDEZ Age: 52 yrs Gender: Female : 1965 Patient Status: Inpatient Patient Location: [address] [place] [address] Study Date: 10/29/2018 10:58 AM Procedure: A two-dimensional transthoracic echocardiogram with color flow Doppler was performed. Images were not obtained from all of the standard acoustic windows due to the limited scope of the study. Reason For Study: Dyspnea, ?pulmonary edema History: Dyspnea, ?pulmonary edema. Ordering Physician: URBANO FERRARI Performed By: Lakshmi Murdock Interpretation Summary There is normal left ventricular wall thickness. No True apical 2 chamber views obtained.Hence cannot comment on the apical anterior , the basal anterior, the basal inferior and apical inferior mclean.The mid anterior , the mid inferior and the rest of the LV mclean are severely hypokinetic.LVEF is severely reduced at 25% to 30%. There is no thrombus. The right ventricle is grossly normal size. The right atrium is normal. The left atrial size is normal. There is no evidence of mitral valve prolapse. There is no vegetation seen on the mitral valve. There is no mitral valve stenosis. There is a mild to moderate amount of mitral regurgitation There is no aortic valvular vegetation. There is no aortic valve stenosis There is no LVOT obstruction. There is a mild amount of aortic regurgitation There is no tricuspid stenosis. There is a mild amount of tricuspid regurgitation There is moderate pulmonary hypertension by echo TVSPis 50to55 mm of Hg , with RA mean of 10 to 15. The aortic root is normal size. The inferior vena cava appeared normal and decreased < 50% with respiration (RAP 10-15 mmHg) There is no pericardial effusion. Large left pleural effusion. MMode/2D Measurements & Calculations RVDd: 2.2 cm LVIDd: 5.4 cm FS: 19.8 % Ao root diam: 3.0 cm IVSd: 1.1 cm LVIDs: 4.3 cm EDV(Teich): 141.3 ml Ao root area: 7.0 cm2 LVPWd: 1.3 cm ESV(Teich): 84.6 ml EF(Teich): 40.1 % Doppler Measurements & Calculations MV E max abiodun: MV dec slope: Ao V2 max: AI max abiodun: 116.7 cm/sec 115.7 cm/sec 470.0 cm/sec MV A max abiodun: 1612 cm/sec2 Ao max PG: AI max P.4 mmHg 44.6 cm/sec MV dec time: 5.4 mmHg AI dec slope: MV E/A: 2.6 0.07 sec 628.9 cm/sec2 AI P1/2t: 218.9 msec LV V1 max PG: PA V2 max: TR max abiodun: 2.9 mmHg 64.9 cm/sec 314.0 cm/sec LV V1 max: PA max P.7 mmHgTR max P.7 cm/sec 39.4 mmHg LV dP/dt: 925.5 mmHg/s Left Ventricle The left ventricle is mildly dilated. There is normal left ventricular wall thickness. No True apical 2 chamber views obtained.Hence cannot comment on the apical anterior , the basal anterior, the basal inferior and apical inferior mclean.The mid anterior , the mid inferior and the rest of the LV mclean are severely hypokinetic.LVEF is severely reduced at 25% to 30%. There is no thrombus. Right Ventricle The right ventricle is grossly normal size. Atria The right atrium is normal. The left atrial size is normal. Mitral Valve There is no evidence of mitral valve prolapse. There is no vegetation seen on the mitral valve. There is no mitral valve stenosis. There is a mild to moderate amount of mitral regurgitation. Aortic Valve There is no aortic valvular vegetation. There is no aortic valve stenosis. There is no LVOT obstruction. There is a mild amount of aortic regurgitation. Tricuspid Valve There is no tricuspid stenosis. There is a mild amount of tricuspid regurgitation. There is moderate pulmonary hypertension by echo. TVSPis 50to55 mm of Hg , with RA mean of 10 to 15. Pulmonic Valve There is no pulmonic valvular stenosis. There is no pulmonic valvular regurgitation. Great Vessels The aortic root is normal size. The inferior vena cava appeared normal and decreased < 50% with respiration (RAP 10-15 mmHg). Effusions There is no pericardial effusion. Large left pleural effusion. : URBANO FERRARI > Angely Angel
[2018-10-29] MEDS: AZITHROMYCIN 500 MG in DEXTROSE 5%-WATER 250 ML IV SCH (21:53)
[2018-10-29] MEDS: METOPROLOL SUCCINATE 50 MG TAB.SR.24H PO SCH (21:54)
[2018-10-29] MEDS ORDERED: INSULIN GLARGINE,HUM.REC.ANLOG 1,000 UNIT/10 ML UNIT SUBCUT SCH (22:00)
[2018-10-30 04:49] LABS: ABSOLUTE BASOPHILS # (AUTO) 0.1 10^3/uL (0.0-0.2); ABSOLUTE LYMPHOCYTES (AUTO) 2.4 10^3/uL (0.5-4.7); ABSOLUTE MONOCYTES (AUTO) 0.8 10^3/uL (0.1-1.4); BASOPHILS % (AUTO) 0.4 % (0-2); HEMATOCRIT 36.9 % (36.0-47.0); MEAN CORPUSCULAR HEMOGLOBIN 27.2 pg (27.0-33.4); MEAN CORPUSCULAR HGB CONC 32.6 g/dL (32.0-36.0); MEAN CORPUSCULAR VOLUME 83 fl (80-97); MONOCYTES % (AUTO) 5.4 % (3-13); PLATELET COUNT 332 10^3/uL (150-450); RED BLOOD COUNT 4.43 10^6/uL (3.72-5.28); RED CELL DISTRIBUTION WIDTH 14.3 % (11.5-14.0); SEGMENTED NEUTROPHILS % (AUTO) 78.2 % (42-78); TOTAL CELLS COUNTED % (AUTO) 100 %; WHITE BLOOD COUNT 15.3 10^3/uL (4.0-10.5)
[2018-10-30 05:07] LABS: ANION GAP 9 (5-19); BLOOD UREA NITROGEN 21 mg/dL (7-20); CALCIUM 9.5 mg/dL (8.4-10.2); CARBON DIOXIDE 24 mmol/L (22-30); CHLORIDE 105 mmol/L (98-107); GLUCOSE 203 mg/dL (75-110); POTASSIUM 4.9 mmol/L (3.6-5.0); SODIUM 138.1 mmol/L (137-145)
[2018-10-30] MEDS: METFORMIN HCL 500 MG TABLET PO SCH ×2 (08:37→17:20)
[2018-10-30] MEDS: INSULIN REG, HUMAN 100 UNIT/ML 3 ML VIAL (PYX) SUBCUT PRN ×3 (08:37→17:23)
[2018-10-30] MEDS: LABETALOL HCL INJ 20 MG/4 ML DISP.SYRIN IV PRN (09:37)
[2018-10-30] MEDS: GUAIFENESIN 600 MG TABLET.SA PO SCH ×2 (09:37→21:41)
[2018-10-30] MEDS: ENOXAPARIN SODIUM INJ 40 MG/0.4 ML DISP.SYRIN SUBCUT SCH (09:38)
[2018-10-30] MEDS: AMLODIPINE BESYLATE 5 MG TABLET PO SCH (09:38)
[2018-10-30] MEDS: FUROSEMIDE 40 MG TABLET PO SCH (09:38)
[2018-10-30] MEDS: FAMOTIDINE 20 MG TABLET PO SCH ×2 (09:38→21:41)
[2018-10-30] MEDS ORDERED: METHYLPREDNISOLONE INJ 40 MG/1 ML SDV IV SCH (10:00)
--- NOTE | 2018-10-30 15:38 | PDOC PROGRESS REPORT ---
Subjective Progress Note for:: 10/30/18 Subjective:: Patient admitted with multiple issues. Currently she states that she feels better. Her blood pressure is better controlled Reason For Visit: PNEUMONIA Physical Exam Vital Signs: Temp Pulse Resp BP Pulse Ox 97.9 F 90 17 149/85 H 100 10/30/18 11:17 10/30/18 14:00 10/30/18 11:17 10/30/18 11:17 10/30/18 11:17 Intake & Output 10/29/18 10/30/18 10/31/18 06:59 06:59 06:59 Intake Total 1466 1556 Balance 1466 1556 Weight 88 kg 86.1 kg General appearance: PRESENT: no acute distress, cooperative Head exam: PRESENT: atraumatic Eye exam: PRESENT: conjunctiva pink, EOMI, PERRLA. ABSENT: scleral icterus Neck exam: PRESENT: thyromegaly. ABSENT: carotid bruit, JVD, lymphadenopathy Respiratory exam: PRESENT: rhonchi, unlabored Cardiovascular exam: PRESENT: RRR. ABSENT: diastolic murmur, rubs, systolic murmur GI/Abdominal exam: PRESENT: normal bowel sounds, soft. ABSENT: distended, guarding, mass, organolmegaly, rebound, tenderness Rectal exam: PRESENT: deferred Extremities exam: PRESENT: full ROM. ABSENT: calf tenderness, clubbing, pedal edema Neurological exam: PRESENT: alert, awake, oriented to person, oriented to place, oriented to time, oriented to situation, CN II-XII grossly intact. ABSENT: motor sensory deficit Psychiatric exam: PRESENT: appropriate affect Results Laboratory Results: 10/30/18 04:05 10/30/18 04:05 10/30/18 10/30/18 04:05 04:05 WBC 15.3 H RBC 4.43 Hgb 12.0 Hct 36.9 MCV 83 MCH 27.2 MCHC 32.6 RDW 14.3 H Plt Count 332 Seg Neutrophils % 78.2 H Lymphocytes % 16.0 Monocytes % 5.4 Eosinophils % 0.0 Basophils % 0.4 Absolute Neutrophils 12.0 H Absolute Lymphocytes 2.4 Absolute Monocytes 0.8 Absolute Eosinophils 0.0 Absolute Basophils 0.1 Sodium 138.1 Potassium 4.9 Chloride 105 Carbon Dioxide 24 Anion Gap 9 BUN 21 H Creatinine 0.66 Est GFR ( Amer) > 60 Est GFR (Non-Af Amer) > 60 Glucose 203 H Calcium 9.5 10/27/18 15:35 CK-MB (CK-2) 0.63 Troponin I < 0.012 NT-Pro-B Natriuret Pep 1310 H Impressions: Chest/Abdomen CTA 10/27/18 16:20 IMPRESSION: 1. No pulmonary embolus. 2. Scattered ground-glass opacities bilaterally. Differential considerations include pneumonia, pulmonary hemorrhage and pulmonary edema. 3. Moderate left and small right pleural effusions. Chest X-Ray 10/28/18 06:00 IMPRESSION: No change. Assessment & Plan - Diagnosis (1) Hypertension Qualifiers: Hypertension type: essential hypertension Qualified Code(s): I10 - Essential (primary) hypertension Is this a current diagnosis for this admission?: Yes Plan: Improving Will continue to adjust meds as needed (2) New onset type 2 diabetes mellitus Is this a current diagnosis for this admission?: Yes Plan: Adjust Insulin, continue Metformin (3) Pleural effusion Is this a current diagnosis for this admission?: Yes (4) Pneumonia Qualifiers: Pneumonia type: due to unspecified organism Laterality: bilateral Lung location: lower lobe of lung Qualified Code(s): J18.1 - Lobar pneumonia, unspecified organism Is this a current diagnosis for this admission?: Yes Plan: Clinically improving - Time Time Spent with patient: 25-34 minutes Medications reviewed and adjusted accordingly: Yes Anticipated discharge: Home Within: within 72 hours - Inpatient Certification Based on my medical assessment, after consideration of the patient's comorbidities, presenting symptoms, or acuity I expect that the services needed warrant INPATIENT care.: Yes Medical Necessity: Need for IV Antibiotics, Risk of Complication if Not Cared For in Hospital - Plan Summary Plan Summary: Will obtain thyroid sono due to suppressed TSH, ? thyromegaly
[2018-10-30] MEDS: CEFTRIAXONE 1 GM/D5W RTU 1 GM/50 ML RTUPB IV SCH (17:20)
--- NOTE | 2018-10-30 17:39 | RADIOLOGY REPORT (SQ) ---
EXAM DESCRIPTION: CHEST 2 VIEWS COMPLETED DATE/TIME: 10/30/2018 5:30 pm REASON FOR STUDY: F/u Pneumonia COMPARISON: 10/28/2018. EXAM PARAMETERS: NUMBER OF VIEWS: two views TECHNIQUE: Digital Frontal and Lateral radiographic views of the chest acquired. RADIATION DOSE: NA LIMITATIONS: none FINDINGS: LUNGS AND PLEURA: Large left pleural effusion with basilar infiltrate. Right lung clear. MEDIASTINUM AND HILAR STRUCTURES: No masses or contour abnormalities. HEART AND VASCULAR STRUCTURES: Heart normal size. No evidence for failure. BONES: No acute findings. HARDWARE: None in the chest. OTHER: No other significant finding. IMPRESSION: LARGE LEFT PLEURAL EFFUSION WITH BASILAR INFILTRATE. IMPROVED AERATION IN THE RIGHT MANUEL G BASE. TECHNICAL DOCUMENTATION: JOB ID: [id number] [employer]- All Rights Reserved Reading location - IP/workstation name: [email or web address]
[2018-10-30] MEDS: AZITHROMYCIN 500 MG in DEXTROSE 5%-WATER 250 ML IV SCH (21:41)
[2018-10-30] MEDS: METOPROLOL SUCCINATE 50 MG TAB.SR.24H PO SCH (21:41)
[2018-10-30] MEDS ORDERED: INSULIN GLARGINE,HUM.REC.ANLOG 1,000 UNIT/10 ML UNIT SUBCUT SCH (22:00)
[2018-10-31 06:50] LABS: ABSOLUTE BASOPHILS # (AUTO) 0.1 10^3/uL (0.0-0.2); ABSOLUTE LYMPHOCYTES (AUTO) 4.7 10^3/uL (0.5-4.7); ABSOLUTE MONOCYTES (AUTO) 0.7 10^3/uL (0.1-1.4); ABSOLUTE NEUT (AUTO) 7.4 10^3/uL (1.7-8.2); BASOPHILS % (AUTO) 0.5 % (0-2); EOSINOPHILS % (AUTO) 0.3 % (0-6); HEMATOCRIT 37.7 % (36.0-47.0); HEMOGLOBIN 12.3 g/dL (12.0-15.5); LYMPHOCYTES % (AUTO) 36.3 % (13-45); MEAN CORPUSCULAR HEMOGLOBIN 27.3 pg (27.0-33.4); MEAN CORPUSCULAR HGB CONC 32.6 g/dL (32.0-36.0); MEAN CORPUSCULAR VOLUME 84 fl (80-97); MONOCYTES % (AUTO) 5.7 % (3-13); PLATELET COUNT 336 10^3/uL (150-450); RED BLOOD COUNT 4.51 10^6/uL (3.72-5.28); SEGMENTED NEUTROPHILS % (AUTO) 57.2 % (42-78); TOTAL CELLS COUNTED % (AUTO) 100 %; WHITE BLOOD COUNT 12.9 10^3/uL (4.0-10.5)
[2018-10-31 07:09] LABS: ANION GAP 8 (5-19); BLOOD UREA NITROGEN 18 mg/dL (7-20); CALCIUM 9.4 mg/dL (8.4-10.2); CARBON DIOXIDE 24 mmol/L (22-30); CHLORIDE 106 mmol/L (98-107); GLUCOSE 130 mg/dL (75-110); POTASSIUM 4.2 mmol/L (3.6-5.0); SODIUM 138.3 mmol/L (137-145)
[2018-10-31 07:24] LABS: FREE T3 2.73 pg/mL (2.77-5.27); FREE T4 (FREE THYROXINE) 1.95 ng/dL (0.78-2.19)
--- NOTE | 2018-10-31 08:20 | RADIOLOGY REPORT (SQ) ---
EXAM DESCRIPTION: U/S THYROID/SFT TISS HD NECK COMPLETED DATE/TIME: 10/30/2018 10:17 pm REASON FOR STUDY: thyromegaly, suppressed TSH COMPARISON: 10/27/2017 CT chest. TECHNIQUE: Dynamic and static wayne-scale images acquired of the thyroid gland. Selected additional c olor/power Doppler images recorded. All images stored to PACS. LIMITATIONS: None. FINDINGS: RIGHT LOBE: 6.1 x 2.3 x 2.6 cm. Background echo pattern mildly heterogeneous. Scattered nodules with dominant largely solid lesion in the inferior pole measuring 2.1 cm. There is some mild cystic change in this lesion, which is wider than tall. Ill-defined margins, no calcifications. Es sentially isoechoic to slightly hypoechoic to the thyroid. LEFT LOBE: 7.1 x 2.6 x 2.7 cm. Multinodular appearance. Isoechoic heterogeneously solid nodule in t he inferior pole measures 1.8 cm. Suspect scattered microcalcifications. Other lesions look predomi nantly cystic. ISTHMUS: Normal size. Homogeneous echotexture. No cystic or solid masses. OTHER: No other significant finding. IMPRESSION: 1. Largest lesion in the right lobe measures 2.1 cm and is considered TiRads 3. Mildly suspicious. Consider FNA. 2. Lesion in the left thyroid lobe measuring 1.8 cm is TiRads 4. Moderately suspicious. Consider FN A. TECHNICAL DOCUMENTATION: JOB ID: [id number] [employer]- All Rights Reserved Reading location - IP/workstation name: [email or web address]
[2018-10-31] MEDS: ENOXAPARIN SODIUM INJ 40 MG/0.4 ML DISP.SYRIN SUBCUT SCH (09:02)
[2018-10-31] MEDS: AMLODIPINE BESYLATE 5 MG TABLET PO SCH (09:04)
[2018-10-31] MEDS: FAMOTIDINE 20 MG TABLET PO SCH (09:04)
[2018-10-31] MEDS: GUAIFENESIN 600 MG TABLET.SA PO SCH (09:04)
[2018-10-31] MEDS: METFORMIN HCL 500 MG TABLET PO SCH ×2 (09:05→17:01)
[2018-10-31] MEDS: FUROSEMIDE 40 MG TABLET PO SCH (09:05)
[2018-10-31] MEDS: PREDNISONE 20 MG TABLET PO SCH (10:12)
--- NOTE | 2018-10-31 12:55 | PDOC PROGRESS REPORT ---
Subjective Progress Note for:: 10/31/18 Subjective:: Patient admitted with multiple issues. Breathing much improved No chest pain or SOB CXR noted with large pleural effusion, no respiratory compromise Reason For Visit: PNEUMONIA Physical Exam Vital Signs: Temp Pulse Resp BP Pulse Ox 98.5 F 84 17 142/81 H 100 10/31/18 04:00 10/31/18 07:00 10/31/18 04:00 10/31/18 04:00 10/31/18 04:00 Intake & Output 10/30/18 10/31/18 11/01/18 06:59 06:59 06:59 Intake Total 1556 1536 Balance 1556 1536 Weight 86.1 kg 85.7 kg General appearance: PRESENT: no acute distress, well-developed, well-nourished Head exam: PRESENT: atraumatic, normocephalic Eye exam: PRESENT: conjunctiva pink, EOMI, PERRLA. ABSENT: scleral icterus Ear exam: PRESENT: normal external ear exam Mouth exam: PRESENT: moist, tongue midline Neck exam: PRESENT: thyromegaly. ABSENT: carotid bruit, JVD, lymphadenopathy Respiratory exam: PRESENT: other - diminished air entry on left base. ABSENT: rales, rhonchi, wheezes Cardiovascular exam: PRESENT: RRR, +S1, +S2. ABSENT: diastolic murmur, rubs, systolic murmur Pulses: PRESENT: normal dorsalis pedis pul Vascular exam: PRESENT: normal capillary refill GI/Abdominal exam: PRESENT: normal bowel sounds, soft. ABSENT: distended, guarding, mass, organolmegaly, rebound, tenderness Rectal exam: PRESENT: deferred Extremities exam: PRESENT: full ROM. ABSENT: calf tenderness, clubbing, pedal edema Neurological exam: PRESENT: alert, awake, oriented to person, oriented to place, oriented to time, oriented to situation, CN II-XII grossly intact. ABSENT: motor sensory deficit Psychiatric exam: PRESENT: appropriate affect, normal mood. ABSENT: homicidal ideation, suicidal ideation Skin exam: PRESENT: dry, intact, warm. ABSENT: cyanosis, rash Results Laboratory Results: 10/31/18 05:50 10/31/18 05:50 10/31/18 10/31/18 10/31/18 05:50 05:50 05:50 WBC 12.9 H RBC 4.51 Hgb 12.3 Hct 37.7 MCV 84 MCH 27.3 MCHC 32.6 RDW 14.0 Plt Count 336 Seg Neutrophils % 57.2 Lymphocytes % 36.3 Monocytes % 5.7 Eosinophils % 0.3 Basophils % 0.5 Absolute Neutrophils 7.4 Absolute Lymphocytes 4.7 Absolute Monocytes 0.7 Absolute Eosinophils 0.0 Absolute Basophils 0.1 Sodium 138.3 Potassium 4.2 Chloride 106 Carbon Dioxide 24 Anion Gap 8 BUN 18 Creatinine 0.68 Est GFR ( Amer) > 60 Est GFR (Non-Af Amer) > 60 Glucose 130 H Calcium 9.4 Free T4 1.95 Free T3 pg/mL 2.73 L 10/27/18 15:35 CK-MB (CK-2) 0.63 Troponin I < 0.012 NT-Pro-B Natriuret Pep 1310 H Impressions: Chest/Abdomen CTA 10/27/18 16:20 IMPRESSION: 1. No pulmonary embolus. 2. Scattered ground-glass opacities bilaterally. Differential considerations include pneumonia, pulmonary hemorrhage and pulmonary edema. 3. Moderate left and small right pleural effusions. Chest X-Ray 10/30/18 00:00 IMPRESSION: LARGE LEFT PLEURAL EFFUSION WITH BASILAR INFILTRATE. IMPROVED AERATION IN THE RIGHT LUNG BASE. Thyroid Ultrasound 10/30/18 00:00 IMPRESSION: 1. Largest lesion in the right lobe measures 2.1 cm and is considered TiRads 3. Mildly suspicious. Consider FNA. 2. Lesion in the left thyroid lobe measuring 1.8 cm is TiRads 4. Moderately suspicious. Consider FNA. Assessment & Plan - Diagnosis (1) Hypertension Qualifiers: Hypertension type: essential hypertension Qualified Code(s): I10 - Essential (primary) hypertension Is this a current diagnosis for this admission?: Yes (2) New onset type 2 diabetes mellitus Is this a current diagnosis for this admission?: Yes (3) Pleural effusion Is this a current diagnosis for this admission?: Yes (4) Pneumonia Qualifiers: Pneumonia type: due to unspecified organism Laterality: bilateral Lung location: lower lobe of lung Qualified Code(s): J18.1 - Lobar pneumonia, unspecified organism Is this a current diagnosis for this admission?: Yes (5) Thyroid nodule Is this a current diagnosis for this admission?: Yes Plan: Sonogram shows large right thyroid nodule as well as a left thyroid nodule moderately suspicious. Fine needle aspiration is recommended and has been ordered - Time Time Spent with patient: 25-34 minutes Medications reviewed and adjusted accordingly: Yes Anticipated discharge: Home Within: within 48 hours - Inpatient Certification Based on my medical assessment, after consideration of the patient's comorbidities, presenting symptoms, or acuity I expect that the services needed warrant INPATIENT care.: Yes Medical Necessity: Need for IV Antibiotics, Risk of Complication if Not Cared For in Hospital
--- NOTE | 2018-10-31 16:12 | RADIOLOGY REPORT (SQ) ---
EXAM DESCRIPTION: CHEST SINGLE VIEW COMPLETED DATE/TIME: 10/31/2018 3:25 pm REASON FOR STUDY: S/P LEFT THORACENTESIS COMPARISON: 10/30/2018. EXAM PARAMETERS: NUMBER OF VIEWS: One view. TECHNIQUE: Single frontal radiographic view of the chest acquired. RADIATION DOSE: NA LIMITATIONS: None. FINDINGS: LUNGS AND PLEURA: Significant decrease in the left pleural effusion following thoracentesi s. No pneumothorax. Residual left basilar density. MEDIASTINUM AND HILAR STRUCTURES: No masses. Contour normal. HEART AND VASCULAR STRUCTURES: Heart normal in size. Normal vasculature. BONES: No acute findings. HARDWARE: None in the chest. OTHER: No other significant finding. IMPRESSION: NO PNEUMOTHORAX FOLLOWING THORACENTESIS. TECHNICAL DOCUMENTATION: JOB ID: [id number] [employer]- All Rights Reserved Reading location - IP/workstation name: [email or web address]
--- NOTE | 2018-10-31 16:13 | RADIOLOGY REPORT (SQ) ---
EXAM DESCRIPTION: U/S THORACENTESIS WITH IMAGING COMPLETED DATE/TIME: 10/31/2018 3:28 pm REASON FOR STUDY: Large left pleural effusion COMPARISON: None. LIMITATIONS: None. PROCEDURE: Procedure, risks, benefit, and alternative explained to patient who then gave written con sent. The posterior left chest wall was marked using ultrasound guidance. A time-out was called for correct marking verification. Chest prepped and draped using sterile technique. Local anesthesia ac hieved using 10 ml of 1% lidocaine injection. A 6fr Safe-T- Centesis set was introduced into the lef t pleural space. Fluid was aspirated. The catheter was removed and the entry site was covered with sterile bandage. No immediate complications noted. Images acquired during the procedure were stored on PACS. FINDINGS: ENTRY SITE: posterior left chest. FLUID VOLUME: 850 mL FLUID ANALYSIS: Clear cathy color. OTHER: Fluid sent to the lab for testing. IMPRESSION: SUCCESSFUL THORACENTESIS USING ULTRASOUND GUIDANCE. COMMENT: Patient medication list reviewed: Yes- Quality ID# [id number]:Eligible professional attests to doc umenting in the medical record they obtained, updated, or reviewed the patient's current medications. TECHNICAL DOCUMENTATION: JOB ID: [id number] [facility]- All Rights Reserved Reading location - IP/workstation name: [email or web address]
[2018-10-31 16:17] LABS: FLUID SOURCE LUNG; FLUID TYPE PLEURAL
[2018-10-31 16:18] LABS: FLUID APPEARANCE CLEAR; FLUID COLOR YELLOW; FLUID VISCOSITY LIQUID
[2018-10-31] MEDS: CEFTRIAXONE 1 GM/D5W RTU 1 GM/50 ML RTUPB IV SCH (17:01)
--- NOTE | 2018-10-31 18:12 | RADIOLOGY REPORT (SQ) ---
EXAM DESCRIPTION: CHEST SINGLE VIEW COMPLETED DATE/TIME: 10/31/2018 5:54 pm REASON FOR STUDY: 2 HOURS S/P LEFT THORACENTESIS COMPARISON: 10/31/2018 EXAM PARAMETERS: NUMBER OF VIEWS: One view. TECHNIQUE: Single frontal radiographic view of the chest acquired. RADIATION DOSE: NA LIMITATIONS: None. FINDINGS: LUNGS AND PLEURA: No opacities, masses or pneumothorax. No pleural effusion. MEDIASTINUM AND HILAR STRUCTURES: No masses. Contour normal. HEART AND VASCULAR STRUCTURES: Heart normal in size. Normal vasculature. BONES: No acute findings. HARDWARE: None in the chest. OTHER: No other significant finding. IMPRESSION: No pneumothorax. TECHNICAL DOCUMENTATION: JOB ID: [id number] [employer]- All Rights Reserved Reading location - IP/workstation name: [email or web address]
[2018-10-31] MEDS: INSULIN REG, HUMAN 100 UNIT/ML 3 ML VIAL (PYX) SUBCUT PRN (18:28)
[2018-11-01] MEDS: AZITHROMYCIN 500 MG in DEXTROSE 5%-WATER 250 ML IV SCH (00:06)
[2018-11-01] MEDS: INSULIN REG, HUMAN 100 UNIT/ML 3 ML VIAL (PYX) SUBCUT PRN ×2 (00:06→17:45)
[2018-11-01] MEDS: GUAIFENESIN 600 MG TABLET.SA PO SCH ×3 (00:07→21:32)
[2018-11-01] MEDS: METOPROLOL SUCCINATE 50 MG TAB.SR.24H PO SCH ×2 (00:07→21:32)
[2018-11-01] MEDS: FAMOTIDINE 20 MG TABLET PO SCH ×3 (00:07→21:32)
[2018-11-01] MEDS: ENOXAPARIN SODIUM INJ 40 MG/0.4 ML DISP.SYRIN SUBCUT SCH (09:00)
[2018-11-01] MEDS: METFORMIN HCL 500 MG TABLET PO SCH ×2 (09:26→17:45)
[2018-11-01] MEDS: PREDNISONE 20 MG TABLET PO SCH (09:26)
[2018-11-01] MEDS: FUROSEMIDE 40 MG TABLET PO SCH (09:26)
[2018-11-01] MEDS: AMLODIPINE BESYLATE 5 MG TABLET PO SCH (09:27)
[2018-11-01] MEDS ORDERED: CLONIDINE HCL 0.1 MG TABLET PO PRN (14:50)
--- NOTE | 2018-11-01 16:38 | PDOC PROGRESS REPORT ---
Subjective Progress Note for:: 11/01/18 Subjective:: Patient admitted with multiple issues. Breathing much improved s/p thoracentesis Patient says she can breathe better We are still awaiting FNA to be done and this is currently scheduled for am Reason For Visit: PNEUMONIA Physical Exam Vital Signs: Temp Pulse Resp BP Pulse Ox 98.1 F 70 16 123/70 100 11/01/18 15:55 11/01/18 15:55 11/01/18 15:55 11/01/18 15:55 11/01/18 15:55 Intake & Output 10/31/18 11/01/18 11/02/18 06:59 06:59 06:59 Intake Total 1536 891 Balance 1536 891 Weight 85.7 kg 85.7 kg General appearance: PRESENT: no acute distress, well-developed, well-nourished Head exam: PRESENT: atraumatic, normocephalic Eye exam: PRESENT: conjunctiva pink, EOMI, PERRLA. ABSENT: scleral icterus Ear exam: PRESENT: normal external ear exam Mouth exam: PRESENT: moist, tongue midline Neck exam: PRESENT: thyromegaly. ABSENT: carotid bruit, JVD, lymphadenopathy, tracheal deviation Respiratory exam: PRESENT: clear to auscultation terri, rhonchi. ABSENT: rales, wheezes Cardiovascular exam: PRESENT: RRR. ABSENT: diastolic murmur, rubs, systolic murmur Pulses: PRESENT: normal dorsalis pedis pul Vascular exam: PRESENT: normal capillary refill GI/Abdominal exam: PRESENT: normal bowel sounds, soft. ABSENT: distended, guarding, mass, organolmegaly, rebound, tenderness Rectal exam: PRESENT: deferred Extremities exam: PRESENT: full ROM. ABSENT: calf tenderness, clubbing, pedal edema Neurological exam: PRESENT: alert, awake, oriented to person, oriented to place, oriented to time, oriented to situation, CN II-XII grossly intact. ABSENT: motor sensory deficit Psychiatric exam: PRESENT: appropriate affect, normal mood. ABSENT: homicidal ideation, suicidal ideation Skin exam: PRESENT: dry, intact, warm. ABSENT: cyanosis, rash Results Laboratory Results: 10/31/18 05:50 10/31/18 05:50 10/31/18 15:30 Fluid Type PLEURAL Fluid Source LUNG Fluid Color YELLOW Fluid Appearance CLEAR Fluid Viscosity LIQUID Fluid WBC 358 Fluid RBC 1290 01/12/19 15:35 CK-MB (CK-2) 0.63 Troponin I < 0.012 NT-Pro-B Natriuret Pep 1310 H Impressions: Chest/Abdomen CTA 10/27/18 16:20 IMPRESSION: 1. No pulmonary embolus. 2. Scattered ground-glass opacities bilaterally. Differential considerations include pneumonia, pulmonary hemorrhage and pulmonary edema. 3. Moderate left and small right pleural effusions. Thyroid Ultrasound 10/30/18 00:00 IMPRESSION: 1. Largest lesion in the right lobe measures 2.1 cm and is considered TiRads 3. Mildly suspicious. Consider FNA. 2. Lesion in the left thyroid lobe measuring 1.8 cm is TiRads 4. Moderately suspicious. Consider FNA. Chest X-Ray 10/31/18 00:00 IMPRESSION: No pneumothorax. Thoracentesis Ultrasound 10/31/18 07:39 IMPRESSION: SUCCESSFUL THORACENTESIS USING ULTRASOUND GUIDANCE. Assessment & Plan - Diagnosis (1) Pleural effusion Is this a current diagnosis for this admission?: Yes Plan: s/p thoracentesis, fluid analysis pending, this appears to be a predominantly lymphocytic diff with blood. Will follow up cytology (2) Hypertension Qualifiers: Hypertension type: essential hypertension Qualified Code(s): I10 - Essential (primary) hypertension Is this a current diagnosis for this admission?: Yes Plan: Controlled (3) New onset type 2 diabetes mellitus Is this a current diagnosis for this admission?: Yes Plan: controlled on Metformin and SSI (4) Pneumonia Qualifiers: Pneumonia type: due to unspecified organism Laterality: bilateral Lung location: lower lobe of lung Qualified Code(s): J18.1 - Lobar pneumonia, unspecified organism Is this a current diagnosis for this admission?: Yes Plan: Resolving (5) Thyroid nodule Is this a current diagnosis for this admission?: Yes Plan: FNA in am Will consult Dr Doll so patient can follow as outpatient - Time Time Spent with patient: 15-24 minutes Medications reviewed and adjusted accordingly: Yes Anticipated discharge: Home Within: within 24 hours - Inpatient Certification Based on my medical assessment, after consideration of the patient's comorbidities, presenting symptoms, or acuity I expect that the services needed warrant INPATIENT care.: Yes Medical Necessity: Other - FNA in am, F/u with Router Setter/Oncologist as outpatient
[2018-11-01] MEDS: CEFTRIAXONE 1 GM/D5W RTU 1 GM/50 ML RTUPB IV SCH (17:46)
[2018-11-01] MEDS ORDERED: AZITHROMYCIN 250 MG TABLET PO SCH (22:00)
[2018-11-02] MEDS: AMLODIPINE BESYLATE 5 MG TABLET PO SCH (09:48)
[2018-11-02] MEDS: METFORMIN HCL 500 MG TABLET PO SCH (09:48)
[2018-11-02] MEDS: FAMOTIDINE 20 MG TABLET PO SCH (09:48)
[2018-11-02] MEDS: GUAIFENESIN 600 MG TABLET.SA PO SCH (09:48)
[2018-11-02] MEDS ORDERED: PREDNISONE 20 MG TABLET PO SCH (10:00)
[2018-11-02] MEDS ORDERED: FUROSEMIDE 20 MG TABLET PO SCH (10:00)
[2018-11-02] MEDS ORDERED: FUROSEMIDE 40 MG TABLET PO SCH (10:00)
[2018-11-02] MEDS: ENOXAPARIN SODIUM INJ 40 MG/0.4 ML DISP.SYRIN SUBCUT SCH (10:00)
--- NOTE | 2018-11-02 16:03 | PDOC DISCHARGE SUMMARY ---
General - Admit/Disc Date/PCP Admission Date/Primary Care Provider: 10/27/18 17:57 Discharge Date: 11/02/18 - Discharge Diagnosis (1) Pleural effusion Is this a current diagnosis for this admission?: Yes (2) Hypertension Is this a current diagnosis for this admission?: Yes (3) New onset type 2 diabetes mellitus Is this a current diagnosis for this admission?: Yes (4) Pneumonia Is this a current diagnosis for this admission?: Yes (5) Thyroid nodule Is this a current diagnosis for this admission?: Yes - Additional Information Resuscitation Status: Full Code Discharge Diet: Cardiac, Diabetic Discharge Activity: Activity As Tolerated Prescriptions: Metoprolol Succinate [Toprol Xl 50 mg Tab.sr] 200 mg PO QHS #120 tab.sr.24h Amlodipine Besylate [Norvasc 5 mg Tablet] 5 mg PO DAILY #30 tablet Metformin HCl [Glucophage 500 mg Tablet] 1,000 mg PO BIDACBS #120 tablet Home Medications: Amlodipine Besylate [Norvasc 5 mg Tablet] 5 mg PO DAILY #30 tablet 11/02/18 Guaifenesin [Mucinex Sr 600 mg Tablet.sa] 600 mg PO Q12 tablet.sa 11/02/18 Metformin HCl [Glucophage 500 mg Tablet] 1,000 mg PO BIDACBS #120 tablet 11/02/18 Metoprolol Succinate [Toprol Xl 50 mg Tab.sr] 200 mg PO QHS #120 tab.sr.24h 11/02/18 History of Present Illness Patient complains of: This patient was admitted with acute onset of shortness of breath. She was found to be tachycardic. She was admitted with the impression of pneumonia. She was hypoxemic also on admission. Please see admitting history and physical for full details History of Present Illness: MARÍA HERNANDEZ is a 52 year old female Hospital Course Hospital Course: This patient was admitted with acute onset of shortness of breath. She was found to be tachycardic. She was admitted with the impression of pneumonia. She was hypoxemic also on admission. Please see admitting history and physical for full details Patient was started on intravenous antibiotics. Initial imaging studies revealed a cyst moderate left and small right pleural effusion. She was treated with ceftriaxone as well as azithromycin. She also received steroids as well as nebulizers. Her blood pressure was also found to be elevated and she was started on multiple medications with further adjustment needed as outpatient. Patient was also found to have type 2 diabetes mellitus and she was discharged on metformin. He will be chest x-ray was done after a few days treatment with IV antibiotics and this revealed worsening left-sided pleural effusion. As such patient had a thoracentesis done with aspiration of about 850 mL of pleural fluid. This revealed a predominant lymphocytosis with a high count of fluid RBC. As of discharge the pathology was still pending. Patient was also noted to have a thyromegaly on exam and so a sonogram was obtained which revealed thyroid lesion with the largest one in the right lobe measuring 2.1cm as well as left thyroid lobe measuring 1.8 cm with mild to moderate suspicions. FNA was attempted unfortunately this was unable to be scheduled. As such patient was referred to Dr. Mojica. I also discussed the case with Dr. Kincaid and although there is no definite diagnosis of a malignancy due to the importance of patient not been lost to follow-up Dr. cruz will help us follow this patient and make sure that her FNA and other test and other referral done as outpatient. Physical Exam Vital Signs: Temp Pulse Resp BP Pulse Ox 98.4 F 76 18 131/73 H 100 11/02/18 12:00 11/02/18 14:00 11/02/18 12:00 11/02/18 12:00 11/02/18 12:00 Intake & Output 11/01/18 11/02/18 11/03/18 06:59 06:59 06:59 Intake Total 891 1764 Balance 891 1764 Weight 85.7 kg 84.2 kg General appearance: PRESENT: no acute distress, well-developed, well-nourished Head exam: PRESENT: atraumatic, normocephalic Eye exam: PRESENT: conjunctiva pink, EOMI, PERRLA. ABSENT: scleral icterus Ear exam: PRESENT: normal external ear exam Mouth exam: PRESENT: moist, tongue midline Neck exam: PRESENT: thyromegaly. ABSENT: carotid bruit, JVD, lymphadenopathy Respiratory exam: PRESENT: clear to auscultation terri, unlabored. ABSENT: rales, rhonchi, tachypnea, wheezes Cardiovascular exam: PRESENT: RRR, +S1, +S2. ABSENT: diastolic murmur, rubs, systolic murmur Pulses: PRESENT: normal dorsalis pedis pul Vascular exam: PRESENT: normal capillary refill GI/Abdominal exam: PRESENT: normal bowel sounds, soft. ABSENT: distended, guarding, mass, organolmegaly, rebound, tenderness Rectal exam: PRESENT: deferred Extremities exam: PRESENT: full ROM. ABSENT: calf tenderness, clubbing, pedal edema Neurological exam: PRESENT: alert, awake, oriented to person, oriented to place, oriented to time, oriented to situation, CN II-XII grossly intact. ABSENT: motor sensory deficit Psychiatric exam: PRESENT: appropriate affect, normal mood. ABSENT: homicidal ideation, suicidal ideation Skin exam: PRESENT: dry, intact, warm. ABSENT: cyanosis, rash Results Laboratory Results: 10/31/18 05:50 10/31/18 05:50 10/27/18 17:51 Blood Blood Culture - Final NO GROWTH IN 5 DAYS 10/27/18 17:20 Blood Blood Culture - Final NO GROWTH IN 5 DAYS 10/27/18 15:35 CK-MB (CK-2) 0.63 Troponin I < 0.012 NT-Pro-B Natriuret Pep 1310 H Impressions: Chest/Abdomen CTA 10/27/18 16:20 IMPRESSION: 1. No pulmonary embolus. 2. Scattered ground-glass opacities bilaterally. Differential considerations include pneumonia, pulmonary hemorrhage and pulmonary edema. 3. Moderate left and small right pleural effusions. Thyroid Ultrasound 10/30/18 00:00 IMPRESSION: 1. Largest lesion in the right lobe measures 2.1 cm and is considered TiRads 3. Mildly suspicious. Consider FNA. 2. Lesion in the left thyroid lobe measuring 1.8 cm is TiRads 4. Moderately suspicious. Consider FNA. Chest X-Ray 10/31/18 00:00 IMPRESSION: No pneumothorax. Thoracentesis Ultrasound 10/31/18 07:39 IMPRESSION: SUCCESSFUL THORACENTESIS USING ULTRASOUND GUIDANCE. Qualifiers - * PATIENT BEING DISCHARGED WITH ANY OF THE FOLLOWING DIAGNOSIS: No Plan Time Spent: Greater than 30 Minutes
[2018-11-02 16:14] VITALS: BP 134/84
== END 2018-11-02 17:27 | disposition home or self-care (01) | DRG 186 ==
LOC: ER 15:28 → EH 17:57 → 5 10-28 08:32
PROVIDERS: ADMIT Internal Medicine; ATTEND Internal Medicine
PROC: BG44ZZZ Ultrasonography of Thyroid Gland (ICD-10-PCS; 2018-10-30)
PROC: 0W9B3ZX Drainage of Left Pleural Cavity, Percutaneous Approach, Diagnostic (ICD-10-PCS; principal; 2018-10-31)
DX: J90 Pleural effusion, not elsewhere classified (principal); J18.1 Lobar pneumonia, unspecified organism; I10 Essential (primary) hypertension; E04.1 Nontoxic single thyroid nodule; E87.5 Hyperkalemia; E11.8 Type 2 diabetes mellitus with unspecified complications; F17.210 Nicotine dependence, cigarettes, uncomplicated
CPT/HCPCS: 32555; 36415; 71045; 71046; 71275; 76536; 80048; 80053; 81001; 82553; 82803; 82945; 82962; 83036; 83605; 83615; 83735; 83880; 84157; 84439; 84443; 84481; 84484; 85025; 85027; 85379; 85610; 85652; 85730; 87015; 87040; 87070; 87075; 87116; 87205; 87206; 88112; 89050; 93005; 93010; 93306; 94640; 96361; 96365; 96375; 99291; J0360; J0456; J0696; J1650; J1815; J2543; J2920; J2930; J3490; J7030; J7060; J7512; J7620